=== PATIENT | female | born 1985 ===

== ENCOUNTER 2018-11-02 16:51 | Emergency (ER) | payer BC ==
[2018-11-02 16:54] VITALS: RESP 18; BMI 21.4
--- NOTE | 2018-11-02 18:56 | ED PDOC ---
Arrival/HPI - General Historian: Patient - History of Present Illness Narrative History of Present Illness (Text): 11/02/18 18:57 CC: foot pain HPI: 33 yo female w/ no PMH comes to ED for evaluation of left foot pain. at bedside offered collateral as patient is predominantly [place] speaking. Patient states that she woke up today and stepped out of bed when she noticed severe pain located on her left foot on the sole of her feet. She described it as a sharp aching pain, rated at a 6/10 on severity. Patient denies trauma, insect bites, prolonged exertion the day prior, no inciting factors for why her foot would be in pain. Patient states that she took no medications at home for the pain. Patient denies previous episodes. Patient denies fevers, chills, chest pain, sob, n/v, constipation or diarrhea, and dysuria. Time/Duration: 24 hours Symptom Onset: Sudden Symptom Course: Unchanged Quality: Aching, Stabbing Severity Level: 6 Activities at Onset: Rest Context: Standing <Blanca Ace - Last Filed: 11/02/18 19:10> <Matthew Antonio - Last Filed: 11/02/18 19:25> - General Chief Complaint: Lower Extremity Problem/Injury Time Seen by Provider: 11/02/18 18:00 Past Medical History - Provider Review Nursing Documentation Reviewed: Yes - Psychiatric Hx Substance Use: No <Blanca Ace - Last Filed: 11/02/18 19:10> Family/Social History - Physician Review Nursing Documentation Reviewed: Yes Family/Social History: No Known Family HX Smoking Status: Never Smoked Hx Alcohol Use: No Hx Substance Use: No <Blanca Ace - Last Filed: 11/02/18 19:10> Allergies/Home Meds <Nabor Aceaser - Last Filed: 11/02/18 19:10> <Matthew Antonio - Last Filed: 11/02/18 19:25> Allergies/Adverse Reactions: Allergies No Known Allergies Allergy (Verified 11/02/18 17:40) Home Medications: Home Meds Medication Instructions Recorded Confirmed No Known Home Med 11/02/18 11/02/18 Review of Systems - Review of Systems Constitutional: Normal. absent: Fatigue, Weight Change, Fevers Eyes: Normal. absent: Vision Changes, Photophobia ENT: Normal. absent: Hearing Changes Respiratory: Normal. absent: SOB, Cough, Sputum Cardiovascular: Normal. absent: Chest Pain, Palpitations Gastrointestinal: Normal. absent: Abdominal Pain, Constipation, Diarrhea, Nausea, Vomiting Genitourinary Female: Normal. absent: Dysuria, Frequency, Hematuria Musculoskeletal: Other (left foot pain) Skin: Normal. absent: Rash, Pruritis Neurological: Normal. absent: Headache, Dizziness Endocrine: Normal. absent: Diaphoresis, Polyuria Psychiatric: Normal. absent: Anxiety, Depression <Db,Madaser - Last Filed: 11/02/18 19:10> Physical Exam Vital Signs Reviewed: Yes Vital Signs Temp Pulse Resp BP Pulse Ox 11/02/18 16:53 98.2 F 77 18 109/67 99 Temperature: Afebrile Blood Pressure: Normal Pulse: Regular Respiratory Rate: Normal Appearance: Positive for: Well-Appearing, Non-Toxic, Comfortable Pain Distress: None Mental Status: Positive for: Alert and Oriented X 3 - Systems Exam Head: Present: Atraumatic, Normocephalic Pupils: Present: PERRL Extroacular Muscles: Present: EOMI Mouth: Present: Moist Mucous Membranes. No: Dry Neck: Present: Normal Range of Motion Respiratory/Chest: Present: Clear to Auscultation, Good Air Exchange. No: Respiratory Distress, Accessory Muscle Use Cardiovascular: Present: Regular Rate and Rhythm, Normal S1, S2. No: Murmurs Abdomen: Present: Normal Bowel Sounds. No: Tenderness, Distention, Peritoneal Signs Upper Extremity: Present: Normal Inspection. No: Cyanosis, Edema Lower Extremity: Present: Swelling (noted on left foot at sole). No: Edema Neurological: Present: GCS=15, CN II-XII Intact, Speech Normal Skin: Present: Warm, Dry, Normal Color. No: Rashes Psychiatric: Present: Alert, Oriented x 3, Normal Insight, Normal Concentration <Db,Madaser - Last Filed: 11/02/18 19:10> Vital Signs Temp Pulse Resp BP Pulse Ox 11/02/18 18:52 98.0 F 80 18 135/79 98 11/02/18 16:53 98.2 F 77 18 109/67 99 <Matthew Antonio - Last Filed: 11/02/18 19:25> Medical Decision Making ED Course and Treatment: 11/02/18 19:02 Impression 33 yo female w/ no PMH comes to ED for evaluation of left foot pain. 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 No IM Administration Charges Document 11/02/18 18:38 EWO (Rec: 11/02/18 18:38 EWO [id number]) Injection Site MAR Injection Site Left Deltoid Charges for Administration # of IM Administrations 1 <Blanca Ace - Last Filed: 11/02/18 19:10> ED Course and Treatment: 11/02/18 19:25 Patient Seen with Resident: In agreement with resident note which contains more details about the patient. Patient seen and evaluated with resident. Came up with plan and treatment together. - RAD Interpretation Radiology Orders: 11/02/18 17:59 FOOT LEFT 3 VIEWS ROUTINE [RAD] Stat - Medication Orders Current Medication Orders: Discontinued Medications Ketorolac Tromethamine (Toradol) 60 mg IM STAT STA Stop: 11/02/18 18:00 Last Admin: 11/02/18 18:38 Dose: 60 mg MAR Pain Assessment Document 11/02/18 18:38 EWO (Rec: 11/02/18 18:38 EWO [id number]) Pain Reassessment Is this a pain reassessment? No IM Administration Charges Document 11/02/18 18:38 EWO (Rec: 11/02/18 18:38 EWO [id number]) Injection Site MAR Injection Site Left Deltoid Charges for Administration # of IM Administrations 1 <Jovan Antonioyl - Last Filed: 11/02/18 19:25> Disposition/Present on Arrival - Present on Arrival Any Indicators Present on Arrival: No History of DVT/PE: No History of Uncontrolled Diabetes: No Urinary Catheter: No History of Decub. Ulcer: No History Surgical Site Infection Following: None - Disposition Have Diagnosis and Disposition been Completed?: Yes Disposition Time: 19:12 Patient Plan: Discharge <Blanca Ace - Last Filed: 11/02/18 19:10> <Matthew Antonio - Last Filed: 11/02/18 19:25> - Disposition Diagnosis: Foot pain, left Disposition: HOME/ ROUTINE Additional Instructions: 1. Please followup with primary care physician within a week of discharge from hospital. 2. Please rest the foot, use ice for 20 minutes at a time, and elevate the leg 3. Please use Aleve for pain control. Referrals: PCP,NO [Primary Care Provider] - Follow up with primary Forms: [employer] ([place]an)
[2018-11-02 19:11] VITALS: BP 135/79; PULSE 80; TEMP 98; O2SAT 98
--- NOTE | 2018-11-03 09:12 | RAD ---
Date of service: 11/02/2018 PROCEDURE: Left Foot Radiographs. HISTORY: left foot pain COMPARISON: None. TECHNIQUE: 3 views obtained. FINDINGS: BONES: No acute fracture. JOINTS: Normal. SOFT TISSUES: Normal. OTHER FINDINGS: None. IMPRESSION: No demonstrated fracture or dislocation.
== END 2018-11-02 19:15 | disposition home or self-care (01) ==
LOC: ED 16:51
DX: M79.672 Pain in left foot (principal)
CPT/HCPCS: 73630; 81025; 96372; 99283; J1885